=== PATIENT | male | born 1970 | race Caucasian/White ===

== ENCOUNTER 2016-07-11 17:08 | Emergency (ER) | payer OTHER ==
[2016-07-11 18:54] LABS: Hematocrit 48 % (42-52); Hemoglobin 15.9 g/dl (14.0-18.0); Mean Corpuscular HGB Conc 34 g/dl (31-36); Mean Corpuscular Hemoglobin 30 pg (27-31); Mean Corpuscular Volume 88 fL (80-94); Mean Platelet Volume 9 um3 (7.4-10.4); Red Blood Count 5.39 10^6/ul (4.0-5.4); Red Cell Distribution Width 15 % (10.5-15); White Blood Count 5.6 10^3/ul (3.5-10.8)
[2016-07-11 19:02] LABS: Albumin 3.9 g/dL (3.2-5.2); BUN/Creatinine Ratio 12.9 (8-20); Calcium 8.7 mg/dL (8.6-10.3); EGFR African American 102.7 (>60); EGFR Non-African American 79.9 (>60); Globulin 2.9 g/dL (2-4); Total Bilirubin 0.5 mg/dL (0.2-1.0); Total Protein 6.8 g/dL (6.4-8.9)
[2016-07-11 20:53] VITALS: BP 136/82
--- NOTE | 2016-07-11 22:41 | ED ---
Misael Gupta Aidan, scribed for Junior Chance MD on 07/11/16 at 1837 . Abdominal Pain/Male - HPI Summary HPI Summary: 45 y/o male presents to the ED with a complaint of acute, constant, moderate (4/ 10), right flank pain described as a cramping sensation just above the right kidney that has persisted for the past several days. He also complains of acute , moderate episodes of blood in his stool. The patient has been under a great deal of stress lately. No Hx of ulcer. Currently, he is on allopurinol for gout , phentermine, and Amlodipine. Pt mentioned an unspecified scope procedure at [facility] recently. - History of Current Complaint Chief Complaint: EDGIBleed Stated Complaint: RECTAL BLEEDING,BACK PAIN Time Seen by Provider: 07/11/16 18:16 Hx Obtained From: Patient Onset/Duration: Sudden Onset, Lasting Days, Still Present Timing: Constant, Lasting Days Severity Initially: Moderate Severity Currently: Moderate Pain Intensity: 4 Pain Scale Used: 0-10 Numeric Location: Flank - right flank Radiates: No Character: Cramping Aggravating Factor(s): Other: - unknown Alleviating Factor(s): Other: - unknown Associated Signs And Symptoms: Positive: Other - episodes of blood in Pt's stool , lots of recent stress - Allergies/Home Medications Allergies/Adverse Reactions: Allergies Allergy/AdvReac Type Severity Reaction Status Date / Time Penicillins Allergy Intermediate Hives Verified 06/10/16 18:40 PMH/Surg Hx/FS Hx/Imm Hx Endocrine/Hematology History: Denies: Hx Diabetes, Hx Thyroid Disease Cardiovascular History: Reports: Hx Hypertension - for about a decade. Respiratory History: Denies: Hx Asthma, Hx Chronic Obstructive Pulmonary Disease (COPD) GI History: Denies: Hx Ulcer - Surgical History Surgery Procedure, Year, and Place: 3X SURGERIES LEFT WRIST. ADENOIDECTOMY. 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; TUBES IN EARS Infectious Disease History: No Infectious Disease History: Reports: History Other Infectious Disease - meningitis 2000 Denies: Hx Clostridium Difficile, Hx Hepatitis, Hx Human Immunodeficiency Virus (HIV), Hx of Known/Suspected MRSA, Hx Shingles, Hx Tuberculosis, Hx Known/ Suspected VRE, Hx Known/Suspected VRSA, Traveled Outside the [place] in Last 30 Days - Family History Known Family History: Positive: Cardiac Disease - father of heart disease, mother has had strokes and [place], living, Hypertension, Diabetes - maternal side. - Social History Occupation: Employed Full-time Lives: Alone Alcohol Use: None Alcohol Amount: NOT IN 18 YRS Substance Use Type: Reports: None Smoking Status (MU): Never Smoked Tobacco Review of Systems Constitutional: Negative Eyes: Negative ENT: Negative Cardiovascular: Negative Respiratory: Negative Positive: Abdominal Pain - "flank" pain, Other - episodes of blood in Pt's stool. Negative: Vomiting, Diarrhea, Nausea Positive: flank pain. Negative: see HPI, burning, dysuria, discharge, frequency , hematuria, incontinence, pain, urgency Musculoskeletal: Negative Skin: Negative Neurological: Negative Psychological: Normal All Other Systems Reviewed And Are Negative: Yes Physical Exam Triage Information Reviewed: Yes Vital Signs On Initial Exam: Initial Vitals Temp Pulse Resp BP Pulse Ox 98.0 F 69 16 144/83 100 07/11/16 17:20 07/11/16 17:20 07/11/16 17:20 07/11/16 17:20 07/11/16 17:20 Vital Signs Reviewed: Yes Appearance: Positive: Well-Appearing, No Pain Distress Skin: Positive: Warm, Skin Color Reflects Adequate Perfusion, Dry Head/Face: Positive: Normal Head/Face Inspection Eyes: Positive: Normal ENT: Positive: Normal ENT inspection Neck: Positive: Supple, Nontender Respiratory/Lung Sounds: Positive: Clear to Auscultation, Breath Sounds Present Cardiovascular: Positive: RRR Abdomen Description: Positive: Nontender, Soft Bowel Sounds: Positive: Present Musculoskeletal: Positive: Normal Neurological: Positive: Normal Psychiatric: Positive: Affect/Mood Appropriate - [place] Coma Scale Coma Scale Total: 15 Diagnostics - Vital Signs Vital Signs Temp Pulse Resp BP Pulse Ox 07/11/16 18:16 65 98 07/11/16 18:14 97.6 F 60 18 143/96 97 07/11/16 17:20 98.0 F 69 16 144/83 100 - Laboratory Lab Results: Lab Results 07/11/16 07/11/16 07/11/16 Range/Units 18:34 18:34 18:34 WBC 5.6 (3.5-10.8) 10^3/ul RBC 5.39 (4.0-5.4) 10^6/ul Hgb 15.9 (14.0-18.0) g/dl Hct 48 (42-52) % MCV 88 (80-94) fL MCH 30 (27-31) pg MCHC 34 (31-36) g/dl RDW 15 (10.5-15) % Plt Count 191 (150-450) 10^3/ul MPV 9 (7.4-10.4) um3 Neut % (Auto) 52.1 (38-83) % Lymph % (Auto) 35.6 (25-47) % Clare % (Auto) 7.7 (1-9) % Eos % (Auto) 3.7 (0-6) % Baso % (Auto) 0.9 (0-2) % Absolute Neuts (auto) 2.9 (1.5-7.7) 10^3/ul Absolute Lymphs (auto) 2.0 (1.0-4.8) 10^3/ul Absolute Monos (auto) 0.4 (0-0.8) 10^3/ul Absolute Eos (auto) 0.2 (0-0.6) 10^3/ul Absolute Basos (auto) 0.1 (0-0.2) 10^3/ul Absolute Nucleated RBC 0 10^3/ul Nucleated RBC % 0.1 INR (Anticoag Therapy) 0.90 (0.89-1.11) APTT 31.3 (26.0-36.3) seconds Sodium 137 (133-145) mmol/L Potassium 4.0 (3.5-5.0) mmol/L Chloride 101 (101-111) mmol/L Carbon Dioxide 28 (22-32) mmol/L Anion Gap 8 (2-11) mmol/L BUN 13 (6-24) mg/dL Creatinine 1.01 (0.67-1.17) mg/dL Est GFR ( Amer) 102.7 (>60) Est GFR (Non-Af Amer) 79.9 (>60) BUN/Creatinine Ratio 12.9 (8-20) Glucose 106 H (70-100) mg/dL Lactic Acid (0.5-2.0) mmol/L Calcium 8.7 (8.6-10.3) mg/dL Total Bilirubin 0.50 (0.2-1.0) mg/dL AST 22 (13-39) U/L ALT 26 (7-52) U/L Alkaline Phosphatase 65 (34-104) U/L Total Protein 6.8 (6.4-8.9) g/dL Albumin 3.9 (3.2-5.2) g/dL Globulin 2.9 (2-4) g/dL Albumin/Globulin Ratio 1.3 (1-3) 05/21/17 Range/Units 18:34 WBC (3.5-10.8) 10^3/ul RBC (4.0-5.4) 10^6/ul Hgb (14.0-18.0) g/dl Hct (42-52) % MCV (80-94) fL MCH (27-31) pg MCHC (31-36) g/dl RDW (10.5-15) % Plt Count (150-450) 10^3/ul MPV (7.4-10.4) um3 Neut % (Auto) (38-83) % Lymph % (Auto) (25-47) % Clare % (Auto) (1-9) % Eos % (Auto) (0-6) % Baso % (Auto) (0-2) % Absolute Neuts (auto) (1.5-7.7) 10^3/ul Absolute Lymphs (auto) (1.0-4.8) 10^3/ul Absolute Monos (auto) (0-0.8) 10^3/ul Absolute Eos (auto) (0-0.6) 10^3/ul Absolute Basos (auto) (0-0.2) 10^3/ul Absolute Nucleated RBC 10^3/ul Nucleated RBC % INR (Anticoag Therapy) (0.89-1.11) APTT (26.0-36.3) seconds Sodium (133-145) mmol/L Potassium (3.5-5.0) mmol/L Chloride (101-111) mmol/L Carbon Dioxide (22-32) mmol/L Anion Gap (2-11) mmol/L BUN (6-24) mg/dL Creatinine (0.67-1.17) mg/dL Est GFR ( Amer) (>60) Est GFR (Non-Af Amer) (>60) BUN/Creatinine Ratio (8-20) Glucose (70-100) mg/dL Lactic Acid 0.8 (0.5-2.0) mmol/L Calcium (8.6-10.3) mg/dL Total Bilirubin (0.2-1.0) mg/dL AST (13-39) U/L ALT (7-52) U/L Alkaline Phosphatase (34-104) U/L Total Protein (6.4-8.9) g/dL Albumin (3.2-5.2) g/dL Globulin (2-4) g/dL Albumin/Globulin Ratio (1-3) Result Diagrams: 07/11/16 18:34 07/11/16 18:34 Lab Statement: Any lab studies that have been ordered have been reviewed, and results considered in the medical decision making process. Abdominal Pain Fem Course/Dx - Course Course Of Treatment: This is a 45 y/o male presenting with acute, constant, moderate right flank pain described as a cramping pain. He also has episodes of rectal bleeding. Labs reviewed. He has had an episode fo colitis in the past without a diagnosis. I am going to assume that this is an infectious coitis and treat accordingly. He will certainly need F/U if not completely improved within a week and he understands. - Diagnoses Provider Diagnoses: Rectal bleeding Discharge - Discharge Plan Condition: Stable Disposition: HOME Discharge Disposition Comment: Please follow up with Dr. Rollins within 2 days. Prescriptions: Ciprofloxacin TAB* [Cipro Tab*] 500 mg PO BID #20 tab Metronidazole [Flagyl 500 MG TAB] 500 mg PO TID #30 tab Patient Education Materials: Rectal Bleeding (ED) Referrals: Holland OSORIO,Juice Cordero [Primary Care Provider] - The documentation as recorded by the Misael oleary Aidan accurately reflects the service I personally performed and the decisions made by me, Junior Chance MD.
== END 2016-07-11 20:53 | disposition home or self-care (01) ==
LOC: ED 17:08
DX: K62.5 Hemorrhage of anus and rectum (principal); I10 Essential (primary) hypertension; M10.9 Gout, unspecified
CPT/HCPCS: 36415; 80053; 83605; 85025; 85610; 85730; 86703; 87389; 99283; G0475

== ENCOUNTER → 2016-10-07 16:50 | Emergency (ER) | payer OTHER ==
[~2016-10-07 16:50] MED LIST: Dexamethasone TAB* 4 MG PO ONE; Ketorolac INJ* 30 MG/ML 1 ML VIAL IV PUSH ONE; Ketorolac INJ* 60 MG/2 ML VIAL IM ONE; Methocarbamol TAB* 500 MG PO ONE; oxyCODONE/Acetamin 5/325 MG* TAB PO ONE
--- NOTE | 2016-10-07 19:16 | RAD ---
INDICATION: Back injury lumbar spine. COMPARISON: Comparison is made with a prior x-ray study of the lumbar spine from October 22, 2013. TECHNIQUE: Contiguous axial sections were obtained beginning above the T12 vertebra and continuing through the L5-S1 disc space. Images were reconstructed in the sagittal and coronal planes. FINDINGS: The vertebra are in normal alignment. No fracture is seen. At the L1-L2 level there is a mild broad-based disc bulge. No significant spinal canal or neural foraminal narrowing is seen. At the L2-L3 level no spinal canal or neural foraminal narrowing is seen. At the L3-L4 level there is a mild broad-based disc bulge. No significant spinal canal or neural foraminal narrowing is present. At the L4-L5 level there is a mild broad-based disc bulge and mild hypertrophic changes within the facet joints. There is mild spinal canal narrowing. No significant neural foraminal narrowing is seen. At the L4-L5 level there is a mild broad-based disc bulge and mild hypertrophic changes within the facet joints. No significant spinal canal or neural foraminal narrowing is seen. IMPRESSION: MILD DEGENERATIVE DISC DISEASE DESCRIBED. IF THE PATIENT'S SYMPTOMS PERSIST CONSIDER MR IMAGING.
--- NOTE | 2016-10-07 20:05 | ED ---
Back Pain - HPI Summary HPI Summary: 45M presents with back pain for two days. He was lifting a box of chicken at work and felt a pop in his lower back. He also gave a piggy back ride and the pain got worst. He has history of back pain in the same area with slipped disc present. He denies any fever, loss of bowel or bladder or saddle anaesthesia. He states he has pain occasionally into his legs. He denies any numbness or tingling. He has been using ibuprofen without relief. - History of Current Complaint Chief Complaint: EDBackInjuryPain Stated Complaint: BACK PAIN Time Seen by Provider: 10/07/16 18:11 Pain Intensity: 7 - Allergies/Home Medications Allergies/Adverse Reactions: Allergies Allergy/AdvReac Type Severity Reaction Status Date / Time Penicillins Allergy Intermediate Hives Verified 10/07/16 16:52 PMH/Surg Hx/FS Hx/Imm Hx Endocrine/Hematology History: Denies: Hx Diabetes, Hx Thyroid Disease Cardiovascular History: Reports: Hx Hypertension - for about a decade. Respiratory History: Denies: Hx Asthma, Hx Chronic Obstructive Pulmonary Disease (COPD) GI History: Denies: Hx Ulcer - Surgical History Surgery Procedure, Year, and Place: 3X SURGERIES LEFT WRIST. ADENOIDECTOMY. 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; TUBES IN EARS Infectious Disease History: No Infectious Disease History: Reports: History Other Infectious Disease - meningitis 2000 Denies: Hx Clostridium Difficile, Hx Hepatitis, Hx Human Immunodeficiency Virus (HIV), Hx of Known/Suspected MRSA, Hx Shingles, Hx Tuberculosis, Hx Known/ Suspected VRE, Hx Known/Suspected VRSA, Traveled Outside the [place] in Last 30 Days - Family History Known Family History: Positive: Cardiac Disease - father of heart disease, mother has had strokes and [place], living, Hypertension, Diabetes - maternal side. - Social History Alcohol Use: Occasionally Alcohol Amount: NOT IN 18 YRS Substance Use Type: Reports: None Smoking Status (MU): Never Smoked Tobacco Review of Systems Negative: Fever Negative: Chest Pain Negative: Shortness Of Breath Positive: Myalgia - back pain All Other Systems Reviewed And Are Negative: Yes Physical Exam Triage Information Reviewed: Yes Vital Signs On Initial Exam: Initial Vitals Temp Pulse Resp BP Pulse Ox 97.8 F 64 16 144/93 97 10/07/16 16:52 10/07/16 16:52 10/07/16 16:52 10/07/16 16:52 10/07/16 16:52 Vital Signs Reviewed: Yes Appearance: Positive: Pain Distress Skin: Positive: Warm, Dry Head/Face: Positive: Normal Head/Face Inspection Eyes: Positive: Normal, EOMI, ANAIS, Conjunctiva Clear ENT: Positive: Normal ENT inspection, Pharynx normal, TMs normal Respiratory/Lung Sounds: Positive: Clear to Auscultation, Breath Sounds Present Cardiovascular: Positive: Normal, RRR Musculoskeletal: Positive: Limited @ - back, Other - tenderness across lower back, neg SLR, good pulses Diagnostics - Vital Signs Vital Signs Temp Pulse Resp BP Pulse Ox 10/07/16 18:45 16 10/07/16 18:11 97.8 F 64 16 144/93 96 10/07/16 16:52 97.8 F 64 16 144/93 97 - Laboratory Lab Statement: Any lab studies that have been ordered have been reviewed, and results considered in the medical decision making process. - CT back CT Interpretation: Positive (See Comments) - IMPRESSION: MILD DEGENERATIVE DISC DISEASE DESCRIBED. IF THE PATIENT'S SYMPTOMS PERSIST CONSIDER MR IMAGING. CT Interpretation Completed By: Radiologist Back Pain Course/Dx - Course Course Of Treatment: 45M presents with back pain for two days. He was lifting a box of chicken at work and felt a pop in his lower back. He also gave a piggy back ride and the pain got worst. He has history of back pain in the same area with slipped disc present. He denies any fever, loss of bowel or bladder or saddle anaesthesia. He states he has pain occasionally into his legs. He denies any numbness or tingling. He has been using ibuprofen without relief. on exam tenderness over lower back. neg SLR. CT no acute changes. will treat with muscle relaxer and steriod. patient understands and agrees with plan. - Diagnoses Differential Diagnosis/HQI/PQRI: Positive: Herniated Disc, Strain, Sprain Provider Diagnoses: Back pain Discharge - Discharge Plan Condition: Good Disposition: HOME Prescriptions: Cyclobenzaprine TAB* [Flexeril 10 MG TAB*] 10 mg PO TID PRN #15 tab PRN Reason: Pain Methylprednisolone [Medrol Dosepak 4 MG*] 4 mg PO .SEE AKOSUA INSTRUCTION #1 packet Patient Education Materials: Back Pain (ED) Forms: *Work Release Referrals: Holland OSORIO,Juice Cordero [Primary Care Provider] - Additional Instructions: Follow directions on package for Medrol pack Take muscle relaxers three times a day for 3 days Use ibuprofen or Tylenol for pain every 6 hours ice/heat area, move as much as possible Follow up with primary within 5 days Return to ED if develop any new or worsening symptoms
[2016-10-07 20:41] VITALS: BP 150/98
== END | disposition home or self-care (01) ==
LOC: ED 16:50
DX: M54.9 Dorsalgia, unspecified (principal)
CPT/HCPCS: 72131; 96374; 96375; 99282; A9270-GY; J1885; J8540

== ENCOUNTER 2016-10-22 16:58 | Emergency (ER) | payer OTHER ==
--- NOTE | 2016-10-22 18:21 | RAD ---
Indication: Syncope. 2 views of the chest including dual energy PA views demonstrates no mediastinal shift. Heart is of normal size and configuration. Hammond appear clear. No changes noted since May 01, 2014. IMPRESSION: No active cardiopulmonary disease is noted.
[2016-10-22 18:43] LABS: Hematocrit 49 % (42-52); Hemoglobin 16.3 g/dl (14.0-18.0); Mean Corpuscular HGB Conc 33 g/dl (31-36); Mean Corpuscular Hemoglobin 29 pg (27-31); Mean Corpuscular Volume 88 fL (80-94); Mean Platelet Volume 9 um3 (7.4-10.4); Red Blood Count 5.58 10^6/ul (4.0-5.4); Red Cell Distribution Width 14 % (10.5-15); White Blood Count 11.5 10^3/ul (3.5-10.8)
[2016-10-22 18:58] LABS: BUN/Creatinine Ratio 16.9 (8-20); Calcium 9.3 mg/dL (8.6-10.3); EGFR African American 118.9 (>60); EGFR Non-African American 92.4 (>60); Globulin 2.9 g/dL (2-4); Magnesium 2.3 mg/dL (1.9-2.7); Total Bilirubin 0.8 mg/dL (0.2-1.0); Total Protein 6.9 g/dL (6.4-8.9)
[2016-10-22 19:12] LABS: Urine Bacteria Absent (Absent); Urine Bilirubin Negative (Negative); Urine Glucose Negative (Negative); Urine Nitrite Negative (Negative)
[2016-10-22 19:34] LABS: TSH (Thyroid Stimulating Horm) 0.91 mcIU/mL (0.34-5.60)
[2016-10-22 19:39] VITALS: BP 125/92
--- NOTE | 2016-10-22 22:09 | ED ---
Carly Gupta Alfonso, scribed for Junior Chance MD on 10/22/16 at 1757 . Syncope/Near Syncope - HPI Summary HPI Summary: This patient is a 45 year old M BIBA to [facility] with a chief complaint of near syncope at 1630 today while at work. The patient rates the pain 0/10 in severity. Symptoms aggravated by nothing. Symptoms alleviated by nothing. Patient reports right-sided chest pain, dizziness, weakness, and extremity tingling. Patient denies N/V/D, and melena. PMHx of HTN and gout. - History Of Current Complaint Chief Complaint: EDSyncope Time Seen by Provider: 10/22/16 17:37 Hx Obtained From: Patient Onset/Duration: Sudden Onset, Lasting Minutes - 1630, Still Present Timing: Constant Activity At Onset: Other - at work Aggravating Factor(s): Nothing Alleviating Factor(s): Nothing Associated Signs And Symptoms: Other - right-sided chest pain, dizziness, weakness, and extremity tingling. Patient denies N/V/D, and melena - Allergies/Home Medications Allergies/Adverse Reactions: Allergies Allergy/AdvReac Type Severity Reaction Status Date / Time Penicillins Allergy Intermediate Hives Verified 10/22/16 17:09 PMH/Surg Hx/FS Hx/Imm Hx Endocrine/Hematology History: Denies: Hx Diabetes, Hx Thyroid Disease Cardiovascular History: Reports: Hx Hypertension - for about a decade. Respiratory History: Denies: Hx Asthma, Hx Chronic Obstructive Pulmonary Disease (COPD) GI History: Denies: Hx Ulcer - Surgical History Surgery Procedure, Year, and Place: 3X SURGERIES LEFT WRIST. ADENOIDECTOMY. 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; TUBES IN EARS Infectious Disease History: Reports: History Other Infectious Disease - meningitis 2000 Denies: Hx Clostridium Difficile, Hx Hepatitis, Hx Human Immunodeficiency Virus (HIV), Hx of Known/Suspected MRSA, Hx Shingles, Hx Tuberculosis, Hx Known/ Suspected VRE, Hx Known/Suspected VRSA, Traveled Outside the [place] in Last 30 Days - Family History Known Family History: Positive: Cardiac Disease - father of heart disease, mother has had strokes and [place], living, Hypertension, Diabetes - maternal side. - Social History Alcohol Use: Occasionally Alcohol Amount: NOT IN 18 YRS Substance Use Type: Reports: None Smoking Status (MU): Never Smoked Tobacco Review of Systems Positive: Chest Pain - right side Positive: Other - negative melena.. Negative: Vomiting, Diarrhea, Nausea Neurological: Other - dizziness, weakness, and extremity tingling Positive: Syncope - near All Other Systems Reviewed And Are Negative: Yes Physical Exam Triage Information Reviewed: Yes Vital Signs On Initial Exam: Initial Vitals Temp Pulse Resp BP Pulse Ox 98.2 F 81 20 140/88 99 10/22/16 17:06 10/22/16 17:06 10/22/16 17:06 10/22/16 17:06 10/22/16 17:06 Vital Signs Reviewed: Yes Appearance: Positive: Well-Appearing, No Pain Distress Skin: Positive: Warm, Skin Color Reflects Adequate Perfusion, Dry Head/Face: Positive: Normal Head/Face Inspection Eyes: Positive: Normal ENT: Positive: Normal ENT inspection Neck: Positive: Supple, Nontender Respiratory/Lung Sounds: Positive: Clear to Auscultation, Breath Sounds Present Cardiovascular: Positive: RRR Abdomen Description: Positive: Nontender, Soft Bowel Sounds: Positive: Present Musculoskeletal: Positive: Other - Tender at mid lateral chest on the right. Neurological: Positive: Normal, Sensory/Motor Intact, Alert, Oriented to Person Place, Time, CN Intact II-III Psychiatric: Positive: Affect/Mood Appropriate - [place] Coma Scale Coma Scale Total: 15 Diagnostics - Vital Signs Vital Signs Temp Pulse Resp BP Pulse Ox 10/22/16 17:06 98.2 F 81 20 140/88 99 - Laboratory Lab Results: Lab Results 10/22/16 10/22/16 10/22/16 Range/Units 18:35 18:35 18:35 WBC 11.5 H (3.5-10.8) 10^3/ul RBC 5.58 H (4.0-5.4) 10^6/ul Hgb 16.3 (14.0-18.0) g/dl Hct 49 (42-52) % MCV 88 (80-94) fL MCH 29 (27-31) pg MCHC 33 (31-36) g/dl RDW 14 (10.5-15) % Plt Count 215 (150-450) 10^3/ul MPV 9 (7.4-10.4) um3 Neut % (Auto) 86.8 H (38-83) % Lymph % (Auto) 8.3 L (25-47) % [place] % (Auto) 4.1 (1-9) % Eos % (Auto) 0.4 (0-6) % Baso % (Auto) 0.4 (0-2) % Absolute Neuts (auto) 10.0 H (1.5-7.7) 10^3/ul Absolute Lymphs (auto) 1.0 (1.0-4.8) 10^3/ul Absolute Monos (auto) 0.5 (0-0.8) 10^3/ul Absolute Eos (auto) 0 (0-0.6) 10^3/ul Absolute Basos (auto) 0 (0-0.2) 10^3/ul Absolute Nucleated RBC 0.01 10^3/ul Nucleated RBC % 0.1 Sodium 133 (133-145) mmol/L Potassium 4.0 (3.5-5.0) mmol/L Chloride 103 (101-111) mmol/L Carbon Dioxide 23 (22-32) mmol/L Anion Gap 7 (2-11) mmol/L BUN 15 (6-24) mg/dL Creatinine 0.89 (0.67-1.17) mg/dL Est GFR ( Amer) 118.9 (>60) Est GFR (Non-Af Amer) 92.4 (>60) BUN/Creatinine Ratio 16.9 (8-20) Glucose 151 H (70-100) mg/dL Lactic Acid 0.6 (0.5-2.0) mmol/L Calcium 9.3 (8.6-10.3) mg/dL Magnesium 2.3 (1.9-2.7) mg/dL Total Bilirubin 0.80 (0.2-1.0) mg/dL AST 20 (13-39) U/L ALT 34 (7-52) U/L Alkaline Phosphatase 66 (34-104) U/L Troponin I 0.00 (<0.04) ng/mL Total Protein 6.9 (6.4-8.9) g/dL Albumin 4.0 (3.2-5.2) g/dL Globulin 2.9 (2-4) g/dL Albumin/Globulin Ratio 1.4 (1-3) TSH 0.91 (0.34-5.60) mcIU/mL Urine Color Urine Appearance Urine pH (5-9) Ur Specific [place] (1.010-1.030) Urine Protein (Negative) Urine Ketones (Negative) Urine Blood (Negative) Urine Nitrate (Negative) Urine Bilirubin (Negative) Urine Urobilinogen (Negative) Ur Leukocyte Esterase (Negative) Urine WBC (Auto) (Absent) Urine RBC (Auto) (Absent) Urine Bacteria (Absent) Urine Glucose (Negative) 10/22/16 Range/Units 18:56 WBC (3.5-10.8) 10^3/ul RBC (4.0-5.4) 10^6/ul Hgb (14.0-18.0) g/dl Hct (42-52) % MCV (80-94) fL MCH (27-31) pg MCHC (31-36) g/dl RDW (10.5-15) % Plt Count (150-450) 10^3/ul MPV (7.4-10.4) um3 Neut % (Auto) (38-83) % Lymph % (Auto) (25-47) % [place] % (Auto) (1-9) % Eos % (Auto) (0-6) % Baso % (Auto) (0-2) % Absolute Neuts (auto) (1.5-7.7) 10^3/ul Absolute Lymphs (auto) (1.0-4.8) 10^3/ul Absolute Monos (auto) (0-0.8) 10^3/ul Absolute Eos (auto) (0-0.6) 10^3/ul Absolute Basos (auto) (0-0.2) 10^3/ul Absolute Nucleated RBC 10^3/ul Nucleated RBC % Sodium (133-145) mmol/L Potassium (3.5-5.0) mmol/L Chloride (101-111) mmol/L Carbon Dioxide (22-32) mmol/L Anion Gap (2-11) mmol/L BUN (6-24) mg/dL Creatinine (0.67-1.17) mg/dL Est GFR ( Amer) (>60) Est GFR (Non-Af Amer) (>60) BUN/Creatinine Ratio (8-20) Glucose (70-100) mg/dL Lactic Acid (0.5-2.0) mmol/L Calcium (8.6-10.3) mg/dL Magnesium (1.9-2.7) mg/dL Total Bilirubin (0.2-1.0) mg/dL AST (13-39) U/L ALT (7-52) U/L Alkaline Phosphatase (34-104) U/L Troponin I (<0.04) ng/mL Total Protein (6.4-8.9) g/dL Albumin (3.2-5.2) g/dL Globulin (2-4) g/dL Albumin/Globulin Ratio (1-3) TSH (0.34-5.60) mcIU/mL Urine Color Yellow Urine Appearance Clear Urine pH 6.0 (5-9) Ur Specific [place] 1.015 (1.010-1.030) Urine Protein Negative (Negative) Urine Ketones Trace H (Negative) Urine Blood 1+ H (Negative) Urine Nitrate Negative (Negative) Urine Bilirubin Negative (Negative) Urine Urobilinogen Negative (Negative) Ur Leukocyte Esterase Negative (Negative) Urine WBC (Auto) Absent (Absent) Urine RBC (Auto) Trace(0-2/hpf) (Absent) Urine Bacteria Absent (Absent) Urine Glucose Negative (Negative) Result Diagrams: 10/22/16 18:35 10/22/16 18:35 Lab Statement: Any lab studies that have been ordered have been reviewed, and results considered in the medical decision making process. - Radiology CXR Radiology Interpretation Completed By: Radiologist - No active cardiopulmonary disease is noted. ED physician has reviewed this radiology report and agrees. - EKG 1944 Cardiac Rate: NL - BPM 77 EKG Rhythm: Sinus Rhythm EKG Interpretation: NAD Course/Dx Course Of Treatment: Mr. Cuba had a nearsyncopal episode at work today. He was monitored here and labs and ecg checked. He remained stable and will be D/C'd for F/U. - Diagnoses Provider Diagnoses: Near syncope Discharge - Discharge Plan Condition: Stable Disposition: HOME Patient Education Materials: Near Syncope (ED) Referrals: Holland OSORIO,Juice Cordero [Primary Care Provider] - 1 Day The documentation as recorded by the Carly oleary Alfonso accurately reflects the service I personally performed and the decisions made by , Junior Chance MD.
== END 2016-10-22 19:58 | disposition home or self-care (01) ==
LOC: ED 16:58
DX: R55 Syncope and collapse (principal); I10 Essential (primary) hypertension; M10.9 Gout, unspecified; E07.9 Disorder of thyroid, unspecified
CPT/HCPCS: 36415; 71020; 80053; 81003; 81015; 83605; 83735; 84443; 84484; 85025; 93005; 99282

== ENCOUNTER 2017-04-12 15:37 | Emergency (ER) | payer BC, MEDICAID, OTHER ==
[2017-04-12 17:13] LABS: ABS Basophils 0 10^3/ul (0-0.2); ABS Eosinophils 0.1 10^3/ul (0-0.6); ABS Lymphocytes 1.2 10^3/ul (1.0-4.8); ABS Monocytes 0.4 10^3/ul (0-0.8); ABS Nucleated RBC 0 10^3/ul; Eosinophil % 0.9 % (0-6); Hematocrit 48 % (42-52); Hemoglobin 16.2 g/dl (14.0-18.0); Lymphocyte % 18.1 % (25-47); Mean Corpuscular HGB Conc 34 g/dl (31-36); Mean Corpuscular Hemoglobin 30 pg (27-31); Mean Corpuscular Volume 88 fL (80-94); Mean Platelet Volume 8 um3 (7.4-10.4); Nucleated Red Blood Cells % 0.1; Platelet Count 204 10^3/ul (150-450); Red Blood Count 5.43 10^6/ul (4.0-5.4); Red Cell Distribution Width 14 % (10.5-15); White Blood Count 6.7 10^3/ul (3.5-10.8)
--- NOTE | 2017-04-12 17:22 | RAD ---
INDICATION: Weakness COMPARISON: None 2016 TECHNIQUE: An AP portable view obtained at 1655 hours is submitted. FINDINGS: Bones/Soft Tissues: There are no acute bony findings. Cardiomediastinal: The cardiomediastinal silhouette is normal. Lungs: There are no infiltrates. Pleura: There are no pleural effusions. Other: None IMPRESSION: NORMAL CHEST.
[2017-04-12 17:28] LABS: EGFR Non-African American 83.3 (>60)
[2017-04-12 21:12] LABS: Urine Appearance Cloudy; Urine Blood Negative (Negative); Urine Color Yellow; Urine Ketones Trace (Negative); Urine Protein Negative (Negative); Urine Specific Gravity 1.016 (1.010-1.030); Urine Urobilinogen Negative (Negative)
[2017-04-12 23:02] VITALS: BP 133/86
--- NOTE | 2017-04-19 15:14 | ED ---
Tanner Gupta Jennifer, scribed for Dhruv Campos MD on 04/12/17 at 1654 . Complex/Multi-Sys Presentation - HPI Summary HPI Summary: The patient is a 46 year old male who presents with weakness and fatigue for the past eight days. The patient reports that he was diagnosed with a sinus infection eight days ago and was on antibiotics but doesnt feel any better. He additionally complains of occasional sneezes, coughing at night, sweats, and occasional dizziness and lightheadedness. The patient denies body aches, diarrhea, vomiting, fever, chills, chest pain, arm pain, jaw pain, back pain, breathing problems, and sore throat. - History Of Current Complaint Chief Complaint: EDWeakness Time Seen by Provider: 04/12/17 16:45 Hx Obtained From: Patient Onset/Duration: Lasting Days - eight days, Still Present Timing: Constant Severity Currently: Mild Severity Initially: Mild Associated Signs And Symptoms: Positive: Other - Weakness, fatigue, occasional sneezing, coughing at night, sweats, occasional dizziness, lightheadedness. NEGATIVE: body aches, diarrhea, vomiting, fever, chills, chest pain, arm pain, jaw pain, back pain, breathing problems, sore throat. - Allergies/Home Medications Allergies/Adverse Reactions: Allergies Allergy/AdvReac Type Severity Reaction Status Date / Time Penicillins Allergy Hives Verified 04/12/17 15:42 PMH/Surg Hx/FS Hx/Imm Hx Endocrine/Hematology History: Denies: Hx Diabetes, Hx Thyroid Disease Cardiovascular History: Reports: Hx Hypertension - for about a decade. Respiratory History: Denies: Hx Asthma, Hx Chronic Obstructive Pulmonary Disease (COPD) GI History: Denies: Hx Ulcer Musculoskeletal History: Reports: Hx Gout - Surgical History Surgery Procedure, Year, and Place: 3X SURGERIES LEFT WRIST. ADENOIDECTOMY. 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 - Social History Alcohol Use: Occasionally Alcohol Amount: NOT IN 18 YRS Substance Use Type: Reports: None Smoking Status (MU): Never Smoked Tobacco Review of Systems Positive: Fatigue, Skin Diaphoresis. Negative: Fever, Chills Negative: Erythema Positive: Other - Occasional sneezing. Negative: Sore Throat Negative: Chest Pain Positive: Cough. Negative: Shortness Of Breath Positive: Nausea. Negative: Abdominal Pain, Vomiting, Diarrhea Negative: dysuria, hematuria Negative: Myalgia, Edema Negative: Rash Neurological: Other - Occasional dizziness, lightheadedness Positive: Weakness All Other Systems Reviewed And Are Negative: Yes Physical Exam - Summary Physical Exam Summary: Constitutional: Well-developed, Well-nourished, Alert. (-) Distressed Skin: Warm, Dry HENT: Normocephalic; Atraumatic Eyes: Conjunctiva normal Neck: Musculoskeletal ROM normal neck. (-) JVD, (-) Stridor, (-) Tracheal deviation Cardio: Rhythm regular, rate normal, Heart sounds normal; Intact distal pulses; The pedal pulses are 2+ and symmetric. Radial pulses are 2+ and symmetric. (-) Murmur Pulmonary/Chest wall: Effort normal. (-) Respiratory distress, (-) Wheezes, (-) Rales Abd: Soft, (-) Tenderness, (-) Distension, (-) Guarding, (-) Rebound Musculoskeletal: (-) Edema Lymph: (-) Cervical adenopathy Neuro: Alert, Oriented x3 Psych: Mood and affect Normal Triage Information Reviewed: Yes Vital Signs On Initial Exam: Initial Vitals Temp Pulse Resp BP Pulse Ox 97.7 F 74 18 131/90 97 04/12/17 15:39 04/12/17 15:39 04/12/17 15:39 04/12/17 15:39 04/12/17 15:39 Vital Signs Reviewed: Yes Diagnostics - Vital Signs Vital Signs Temp Pulse Resp BP Pulse Ox 04/12/17 16:16 97.5 F 75 18 124/80 95 04/12/17 16:00 73 9 93 04/12/17 15:57 77 20 96 04/12/17 15:39 97.7 F 74 18 131/90 97 - Laboratory Result Diagrams: 04/12/17 16:59 04/12/17 16:59 Lab Statement: Any lab studies that have been ordered have been reviewed, and results considered in the medical decision making process. - Radiology CXR Xray Interpretation: No Acute Changes - NORMAL CHEST. Dr. Campos has reviewed this report. Radiology Interpretation Completed By: Radiologist - EKG 17:55 Cardiac Rate: NL EKG Rhythm: Sinus Rhythm - 69 BPM EKG Interpretation: No STEMI Re-Evaluation - Re-Evaluation First Eval Re-Evaluation Time: 19:45 Change: Unchanged Comment: The patient has no focal weakness. He feels exhausted. No insomnia. Baseline caffeine intake. We will add on thyroid studies and repeat troponin. Complex Multi-Symp Course/Dx Assessment/Plan: The patient is a 46 year old male who presents with weakness and fatigue for the past eight days. He was diagnosed with a sinus infection eight days ago. Bloodwork and Urinalysis were obtained. EKG was obtained. CXR showed normal chest. Influenza A and B were negative. The patient is diagnosed with fatigue. The patient is instructed to follow up with primary care in two days and to go back to work in two days. OR, UTI, sepsis, thyroid dysfunction, electrolyte abnormality have all been ruled out. He understands the importance of close follow-up. - Diagnoses Provider Diagnoses: Fatigue Discharge - Discharge Plan Condition: Stable Disposition: HOME Patient Education Materials: Fatigue (ED) Forms: *Work Release Referrals: Holland OSORIO,Juice Cordero [Primary Care Provider] - 2 Days Additional Instructions: Follow up with your primary care physician in two days. Return to the emergency department for any new or worsening symptoms. The documentation as recorded by the Tanner oleary Jennifer accurately reflects the service I personally performed and the decisions made by , Dhruv Campos MD.
== END 2017-04-12 22:08 | disposition home or self-care (01) ==
LOC: ED 15:37
DX: R53.83 Other fatigue (principal); I10 Essential (primary) hypertension; Z88.0 Allergy status to penicillin
CPT/HCPCS: 36415; 71045; 80053; 81003; 82533; 83605; 84439; 84443; 84484; 85025; 85652; 86140; 86703; 87502; 93005; 99284

== ENCOUNTER 2018-09-13 17:14 | Emergency (ER) | payer BC, MEDICAID ==
[2018-09-13 17:44] LABS: ABS Eosinophils 0.2 10^3/ul (0-0.6); ABS Lymphocytes 1.7 10^3/ul (1.0-4.8); ABS Monocytes 0.4 10^3/ul (0-0.8); ABS Neutrophils 3.6 10^3/ul (1.5-7.7); Eosinophil % 2.9 %; Hematocrit 45 % (42-52); Hemoglobin 15.6 g/dL (14.0-18.0); Mean Corpuscular HGB Conc 35 g/dL (31-36); Mean Corpuscular Hemoglobin 30 pg (27-31); Mean Corpuscular Volume 88 fL (80-94); Mean Platelet Volume 8.8 fL (7.4-10.4); Nucleated Red Blood Cells % 0.2; Platelet Count 196 10^3/uL (150-450); Red Blood Count 5.15 10^6 /uL (4.18-5.48); Red Cell Distribution Width 15 % (10-15); White Blood Count 5.9 10^3/uL (3.5-10.8)
[2018-09-13 18:04] LABS: Albumin 4.2 g/dL (3.2-5.2); Albumin/Globulin Ratio 1.4 (1-3); BUN/Creatinine Ratio 13.3 (8-20); Calcium 9.2 mg/dL (8.6-10.3); EGFR African American 91.6 (>60); EGFR Non-African American 75.7 (>60); Globulin 2.9 g/dL (2-4); Potassium 4.3 mmol/L (3.5-5.0); Total Bilirubin 0.5 mg/dL (0.2-1.0); Total Protein 7.1 g/dL (6.4-8.9)
[2018-09-13] MEDS ORDERED: Ketorolac INJ* 30 MG/ML 1 ML VIAL IV PUSH ONE (23:28)
[2018-09-13] MEDS ORDERED: PROCHLORPERAZINE INJ 5 MG/ML 2 ML VIAL IV ONE (23:28)
[2018-09-13] MEDS ORDERED: diPHENhydraMINE IV* 50 MG/ML 1 ml VIAL (BENADRYL) IV ONE (23:28)
[2018-09-13 23:45] LABS: C Reactive Protein 1.39 mg/L (<8.01)
[2018-09-14] MEDS ORDERED: cloNIDine TAB* 0.1 MG PO ONE (00:19)
--- NOTE | 2018-09-14 00:31 | ED ---
Headache - HPI Summary HPI Summary: 47-year-old male presents with headache and nausea today. he denies any history of headache. He states he was lying down working on a car when he developed a headache. Headache was 6 out of 10. Not worse headache of his life. He states the headache has decreased. He was states he checked his blood pressure was greater than 180. He called EMS and was brought in. He states that since the nausea has decreased. He states that bp has been elevated. Denies any chest pain or shortness of breath. No abdominal pain. No vomiting. He hasn't taking anything for her symptoms. No fevers. No neck stiffness. States the headache is sharp and located around his eyes and into his nose. He denies any sinus congestion. No change in vision. No photophobia. no difficulties with speech. - History Of Current Complaint Chief Complaint: EDGeneral Stated Complaint: HEADCHE, NAUSEA PER EMS Time Seen by Provider: 09/13/18 23:18 - Allergies/Home Medications Allergies/Adverse Reactions: Allergies Allergy/AdvReac Type Severity Reaction Status Date / Time Penicillins Allergy Hives Verified 04/24/18 19:12 PMH/Surg Hx/FS Hx/Imm Hx Endocrine/Hematology History: Reports: Hx Diabetes Denies: Hx Thyroid Disease Cardiovascular History: Reports: Hx Hypertension - for about a decade. Respiratory History: Denies: Hx Asthma, Hx Chronic Obstructive Pulmonary Disease (COPD) GI History: Denies: Hx Ulcer Musculoskeletal History: Reports: Hx Gout - Cancer History Cancer Type, Location and Year: kidney cancer August 2017 - Surgical History Surgery Procedure, Year, and Place: 3X SURGERIES LEFT WRIST. ADENOIDECTOMY. 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; TUBES IN EARS, kidney removed august 2017 - Immunization History Date of Influenza Vaccine: 11/07 Infectious Disease History: No Infectious Disease History: Reports: History Other Infectious Disease - meningitis 2000 Denies: Hx Clostridium Difficile, Hx Hepatitis, Hx Human Immunodeficiency Virus (HIV), Hx of Known/Suspected MRSA, Hx Shingles, Hx Tuberculosis, Hx Known/ Suspected VRE, Hx Known/Suspected VRSA, Traveled Outside the [place] in Last 30 Days - Family History Known Family History: Positive: Cardiac Disease - father of heart disease, mother has had strokes and [place], Hypertension, Diabetes - maternal side. - Social History Alcohol Use: Rare Alcohol Amount: NOT IN 18 YRS Substance Use Type: Reports: None Smoking Status (MU): Never Smoked Tobacco Review of Systems Negative: Fever Negative: Chest Pain Negative: Shortness Of Breath Positive: Nausea Positive: Headache All Other Systems Reviewed And Are Negative: Yes Physical Exam Triage Information Reviewed: Yes Vital Signs On Initial Exam: Initial Vitals Temp Pulse Resp BP Pulse Ox 96.2 F 54 16 149/91 100 09/13/18 17:15 09/13/18 17:15 09/13/18 17:15 09/13/18 17:15 09/13/18 17:15 Vital Signs Reviewed: Yes Appearance: Positive: Well-Appearing Skin: Positive: Warm, Dry Head/Face: Positive: Normal Head/Face Inspection Eyes: Positive: Normal, EOMI, ANAIS, Conjunctiva Clear ENT: Positive: Normal ENT inspection, Pharynx normal, TMs normal Neck: Positive: Supple, Nontender, No Lymphadenopathy. Negative: Nuchal Rigidity Respiratory/Lung Sounds: Positive: Clear to Auscultation, Breath Sounds Present Cardiovascular: Positive: Normal, RRR Abdomen Description: Positive: Nontender, Soft Bowel Sounds: Positive: Present Musculoskeletal: Positive: Normal Neurological: Positive: Sensory/Motor Intact, Alert, Oriented to Person Place, Time, CN Intact II-III Psychiatric: Positive: Normal Diagnostics - Vital Signs Vital Signs Temp Pulse Resp BP Pulse Ox 09/14/18 00:19 44 171/100 96 09/14/18 00:00 57 97 09/13/18 23:43 49 175/115 98 09/13/18 23:42 96.8 F 59 18 170/78 98 09/13/18 23:41 48 98 09/13/18 21:39 97.3 F 59 19 130/100 99 09/13/18 19:23 97 F 54 16 155/102 98 09/13/18 17:16 96.9 F 55 16 150/100 97 09/13/18 17:15 96.2 F 54 16 149/91 100 - Laboratory Lab Results: Lab Results 09/13/18 09/13/18 09/13/18 Range/Units 17:34 17:34 17:34 WBC 5.9 (3.5-10.8) 10^3/uL RBC 5.15 (4.18-5.48) 10^6 /uL Hgb 15.6 (14.0-18.0) g/dL Hct 45 (42-52) % MCV 88 (80-94) fL MCH 30 (27-31) pg MCHC 35 (31-36) g/dL RDW 15 (10-15) % Plt Count 196 (150-450) 10^3/uL MPV 8.8 (7.4-10.4) fL Neut % (Auto) 59.9 % Lymph % (Auto) 29.0 % Weld % (Auto) 7.5 % Eos % (Auto) 2.9 % Baso % (Auto) 0.7 % Absolute Neuts (auto) 3.6 (1.5-7.7) 10^3/ul Absolute Lymphs (auto) 1.7 (1.0-4.8) 10^3/ul Absolute Monos (auto) 0.4 (0-0.8) 10^3/ul Absolute Eos (auto) 0.2 (0-0.6) 10^3/ul Absolute Basos (auto) 0.0 (0-0.2) 10^3/ul Absolute Nucleated RBC 0.0 10^3/ul Nucleated RBC % 0.2 Sodium 137 (135-145) mmol/L Potassium 4.3 (3.5-5.0) mmol/L Chloride 104 (101-111) mmol/L Carbon Dioxide 27 (22-32) mmol/L Anion Gap 6 (2-11) mmol/L BUN 14 (6-24) mg/dL Creatinine 1.05 (0.67-1.17) mg/dL Est GFR ( Amer) 91.6 (>60) Est GFR (Non-Af Amer) 75.7 (>60) BUN/Creatinine Ratio 13.3 (8-20) Glucose 132 H (70-100) mg/dL Lactic Acid 0.8 (0.5-2.0) mmol/L Calcium 9.2 (8.6-10.3) mg/dL Total Bilirubin 0.50 (0.2-1.0) mg/dL AST 24 (13-39) U/L ALT 25 (7-52) U/L Alkaline Phosphatase 55 (34-104) U/L C-Reactive Protein 1.39 (<8.01) mg/L Total Protein 7.1 (6.4-8.9) g/dL Albumin 4.2 (3.2-5.2) g/dL Globulin 2.9 (2-4) g/dL Albumin/Globulin Ratio 1.4 (1-3) Result Diagrams: 09/13/18 17:34 09/13/18 17:34 Lab Statement: Any lab studies that have been ordered have been reviewed, and results considered in the medical decision making process. Re-Evaluation - Re-Evaluation First Eval Re-Evaluation Time: 00:30 Change: Improved Comment: feeling better Second Eval Re-Evaluation Time: 01:15 Comment: headache better. bp 149/93 Headache Course/Dx - Course Course Of Treatment: 47-year-old male presents with headache and nausea today. he denies any history of headache. He states he was lying down working on a car when he developed a headache. Headache was 6 out of 10. Not worse headache of his life. He states the headache has decreased. He was states he checked his blood pressure was greater than 180. He called EMS and was brought in. He states that since the nausea has decreased. He states that bp has been elevated. Denies any chest pain or shortness of breath. No abdominal pain. No vomiting. He hasn't taking anything for her symptoms. No fevers. No neck stiffness. States the headache is sharp and located around his eyes and into his nose. He denies any sinus congestion. No change in vision. No photophobia. no difficulties with speech. On exam has normal neuro exam. CT was ordered in the waiting room and was under 6 hours since the onset headache so highly sensitivity for SAH. wbc and crp normal. as BP is elevated here gave clonidine. Blood pressure came down. Gave medication for headache and had a decrease headache. discussed patient feels like except for today bp has been normal so will not adjust meds at this time. will have follow up with primary. patient understand and agrees with plan. - Diagnoses Differential Diagnosis/HQI/PQRI: Migraine, Tension Headache, Viral Syndrome Provider Diagnoses: Headache, Hypertension Discharge - Sign-Out/Discharge Documenting (check all that apply): Patient Departure Patient Received Moderate/Deep Sedation with Procedure: No - Discharge Plan Condition: Good Disposition: HOME Patient Education Materials: Acute Headache (ED) Referrals: Randi Bagley NP [Primary Care Provider] - Additional Instructions: take Tylenol or ibuprofen for pain every 6 hours Follow up with primary within 5 days keep log of blood pressure for next couple days Return to ED if develop any new or worsening symptoms - Billing Disposition and Condition Condition: GOOD Disposition: Home
[2018-09-14 01:15] VITALS: BP 149/93
== END 2018-09-14 01:16 | disposition home or self-care (01) ==
LOC: ED 17:14
DX: R51 Headache (principal); I10 Essential (primary) hypertension; R11.0 Nausea; E11.9 Type 2 diabetes mellitus without complications; Z88.0 Allergy status to penicillin
CPT/HCPCS: 36415; 70450; 80053; 83605; 85025; 86140; 96374; 96375; 99285; A9270-GY; J0780; J1200; J1885